=== PATIENT | female | born 1945 | race Caucasian/White ===

== ENCOUNTER → 2016-10-03 | Outpatient (CLI) | payer MEDICARE, OTHER | LOC: RAD 07:39 | PROVIDERS: ATTEND Specialist | DX: R59.0 Localized enlarged lymph nodes (principal) | CPT/HCPCS: 74160 ==

== ENCOUNTER → 2018-05-20 | Outpatient (CLI) | payer MEDICARE, OTHER ==
--- NOTE | 2018-05-20 09:26 | RADIOLOGY REPORT (SQ) ---
EXAM DESCRIPTION: COOKIE SWALLOW COMPLETED DATE/TIME: 05/20/2018 8:29 am REASON FOR STUDY: CIRRHOSIS OF LIVER K74.69 OTHER CIRRHOSIS OF LIVER lupus, gastroesophageal reflux , dysphagia with choking and strangulation sensation when eating COMPARISON: None. TECHNIQUE: Videofluoroscopic swallowing examination was performed in conjunction with speech patholo gy. Videofluoroscopic imaging was obtained and reviewed and these are the findings: RADIATION DOSE: 1 minutes 8 seconds of fluoroscopy was used. 1 images saved to PACS. LIMITATIONS: None FINDINGS: The patient was brought into the fluoro room and placed upright on a modified barium swall ow chair. The patient was then given multiple consistencies mixed with barium to swallow under live fluoroscopic video guidance. According to the Speech Pathologist there was no penetration or aspirat ion. Moderate cricopharyngeal hypertrophy causing narrowing of the proximal esophagus. Multiple leve l cervical osteophytes causing impression upon the proximal esophagus. Post swallow residual contras t seen within the lower Piriforms and upper esophagus. IMPRESSION: NO EVIDENCE OF PENETRATION OR ASPIRATION.PLEASE SEE SPEECH PATHOLOGIST REPORT FOR OTHER FINDINGS AND RECOMMENDATIONS. COMMENT: Quality ID [id number]: Final reports for procedures using fluoroscopy that document radiation exp osure indices, or exposure time and number of fluorographic images (if radiation exposure indices are not available) TECHNICAL DOCUMENTATION: JOB ID: [id number] [email or web address]- All Rights Reserved Reading location - IP/workstation name: [id number]
--- NOTE | 2018-05-20 11:31 | ST Modified Barium Swallow ---
Recommendation - Recommendations Recommendations: No diet change recommendations other than modifying texture due to dentition. Functional oral and pharyngeal phase swallow seen, possible impact of cervical osteophytes on upper esophageal phase of swallow. Medical Diagnoses - Medical Diagnoses Medical Diagnosis Description & ICD-10 Code(s): K74.69 cirrhosis of liver, R13.10 dysphagia Other Medical Diagnoses/Co-Morbidities: per patient report: asthma, prior esophageal dilations ST Modified Barium Swallow - General Date: 05/20/18 Referring Physician: Dr. Ramirez Risks/Precautions: None Date of Onset: 02/26/18 - approximate onset date Reason for Referral: "strangles easy" - History History obtained from: Patient -: Medical - Patient attended evaluation with , both contributed to history. Patient reports difficulty for approximately 6-8 weeks. She states that she "strangles easily". Specifically reports difficulty with noodles and meats. She does also report losing teeth recently, which makes chewing difficult. She does report having multiple prior esophageal dilations, most recently approximately 1 year ago. Medications: per patient report: tramadol, ambien, gabapentin, medication taken for blood pressure, liver, fibromyalgia Allergies: sulfa drugs, mycin drugs - Functional Status Prior Functional Status: INDEPENDENT: feeding - independent Current Functional Limitations: feeding - difficulty - Subjective Patient/caregiver goal(s): better swallow Cognitive-Linguistic Function: WNL Speech Intelligibility: WNL Current Nutritional Means: PO Current PO diet: Regular Current symptoms: Coughing Pain: Patient reports, 0/5 - Objective Assessment: Upright, Left Lateral - Food Trials Used Food trials used: Thin liquids, Pureed, Regular The patient: Was Able to Self Feed - Oral-Motor Skills Dentition: Partial Velo-pharyngeal function: Unremarkable - Assessment Oral prep: Normal Labial closure: Adequate Leakage: None Mastication: Adequate Lingual Movement: Normal Oral stage: Normal for this Procedure - Pharyngeal Stage Initiation of Pharyngeal Stage Reflex: Delayed Reflex Delay Time (Seconds): 2 - noted with liquid trials Decreased laryngeal elevation: No Reduced Velopharyngeal Closure: no Reduced pressure generation: No reduced tongue-based retraction: No Pre-swallow pooling in valleculae: None Pre-Swallow pooling in pyriforms: None Reduced Thyro-Hyoid approximation: No Reduced epiglottic excursion: No Reduced pharyngeal peristalsis/contraction: No Post-swallow residulas vallecular: None Post-Swallow residuals in pyriforms: None - Esophageal Stage Cervical Osteophytes noted: Yes - seen at approximately C6-7, stasis of solid trials seen at this level as well, eventually cleared - Fall Risk Assessment Medications/Conditions that increase fall risks include: Antidepressants, sedatives, anti-arrhythmic, diuretic, benzodiazipenes, neuroleptics. BP regulation problems, cardiac problems, balance or gait deficits, neurological problems. Fall Risk Actions Taken: No action needed - Behavioral Observations During evaluation process patient: was pleasant, was cooperative, able to answer questions - Treatment / Educational Needs: Treatment/Education Needs: Treatment consisted of patient education on the role of the Speech Pathologist. Patient's plan of care and golas were communicated as well as scheduling and attendance policies. Recommendations for initial home program were shared. Patient demonstrated understanding and verbalized agreement. - Impression/Summary Laryngeal Penetration: No Tracheal Aspiration: no Patient presents with: Normal swallow at eval Risk of Aspiration: Minimal Evaluation and Findings: Mild delay initiating swallow, not impacting overall safety of swallow. Stasis seen in upper esophageal region at the level of osteophytes. - Recommendations Solid diet recommendations: Regular Liquid Diet Modification: Thin Dysphagia therapy with CABIN WORKER: no Recommended techniques: Fully Upright During Meal, Small Bites and Sips, Alternate Bites/Sips Supervision: Independent Information, Precautions and Recommendations: Patient (Written), Patient (Verbal ) - Time Total Time: 25 - Plan of Care Patient to follow-up with referring physician: Yes Strategies to optimize patient understanding include:: ongoing assessment of educational needs, implementation of educational strategies, and re-education. - - -: Thank you for the opportunity to work with this patient and his/her family. Should you have any questions about this patient's plan or progress, I can be reached at [phone]. Charge G Code? - - -: Yes ST F.L. Impairment Category - Rationale Based On Rationale Based On: Clin Find., Obj Measures - Swallowing Current G8996: CI 1-19% Impaired Goal G8997: CI 1-19% Impaired Discharge G8998: CI 1-19% Impaired
== END ==
LOC: RAD 07:39
PROVIDERS: ATTEND Internal Medicine Gastroenterology
DX: K74.69 Other cirrhosis of liver (principal); R13.10 Dysphagia, unspecified
CPT/HCPCS: 74230; 92611; G8996; G8997; G8998